=== PATIENT | female | born 1970 | race Caucasian/White ===

== ENCOUNTER 2019-07-14 10:36 | Emergency (ER) | payer MEDICAID ==
--- NOTE | 2019-07-14 10:41 | NUR ---
PT REFUSING V/S, "CAN I JUST LEAVE?" PT LEFT AMB, GAIT STEADY
== END 2019-07-14 10:43 | disposition left against medical advice (07) ==
LOC: ED 10:40
DX: J45.909 Unspecified asthma, uncomplicated (principal); Z53.21 Procedure and treatment not carried out due to patient leaving prior to being seen by health care provider

== ENCOUNTER 2019-07-28 10:51 | Emergency (ER) | payer MEDICAID ==
--- NOTE | 2019-07-28 10:57 | NUR ---
PT IN TRIAGE TO BE TRIAGED. PT REFUSES NIBP. PT STATES "I DON'T WANT TO BE HERE. I DON'T WANT THAT ON MY ARM TO BE TAKEN. I'LL JUST COME BACK TOMORROW." AUTUMNN. PT LEFT WITH ALL PERSONAL BELONGINGS.
== END 2019-07-28 10:59 | disposition left against medical advice (07) ==
LOC: ED 10:53
DX: R06.02 Shortness of breath (principal); Z53.21 Procedure and treatment not carried out due to patient leaving prior to being seen by health care provider